=== PATIENT | male | born 1970 | race Caucasian/White ===

== ENCOUNTER 2017-02-13 18:27 | Inpatient (IN) | payer MEDICAID, OTHER ==
[~2017-02-13] VITALS: Ht 165.1 cm; Wt 78.0 kg
[2017-02-13] MEDS ORDERED: PANTOPRAZOLE 40 MG INJ IV STA (18:47)
[2017-02-13 19:36] LABS: ADD SCAN DIFF NO
[2017-02-13 19:52] LABS: ABNORMAL IP MESSAGE 1; HEMATOCRIT 34.3 % (42.0-52.0); HEMOGLOBIN 11.5 g/dl (14.0-18.0); MEAN CORPUSCULAR HEMOGLOBIN 29.6 pg (29.0-33.0); MEAN CORPUSCULAR HGB CONC 33.5 g/dl (32.0-37.0); MEAN CORPUSCULAR VOLUME 88.4 fl (82.0-101.0); MEAN PLATELET VOLUME 12.2 fl (7.4-10.4); PLATELET COUNT 73 10^3/UL (140-415); RED BLOOD COUNT 3.88 10^6/ul (4.70-6.10); RED CELL DISTRIBUTION WIDTH 14.6 % (11.5-14.5); WHITE BLOOD COUNT 5.5 10^3/ul (4.8-10.8)
[2017-02-13 19:59] LABS: ALBUMIN 4.8 g/dl (3.3-4.9); ALBUMIN/GLOBULIN RATIO 1.23; BILIRUBIN,INDIRECT 0.4 mg/dl (0-1.1); BILIRUBIN,TOTAL 0.4 mg/dl (0.2-1.3); CALCIUM 8.7 mg/dl (8.4-10.2); CREATININE 0.66 mg/dl (0.61-1.24); POTASSIUM 3.4 mmol/L (3.5-5.1); TOTAL PROTEIN 8.7 g/dl (6.1-8.1)
--- NOTE | 2017-02-13 20:17 | RADRPT ---
PROCEDURE: XR Chest AP portable CLINICAL INDICATION: Possible GI bleed TECHNIQUE: An AP portable radiograph of the chest was submitted. COMPARISON: None. FINDINGS: Support Hardware: None Cardiovascular: The heart is upper normal in size and the the peripheral pulmonary vasculature appea rs normal. The aorta appears tortuous. Lung Bull: The lung bull appear clear with no nodule, alveolar infiltrate, or interstitial promi nence evident. Pleural Spaces: No pneumothorax or pleural effusion is identified. Osseous Structures: The osseous structures appear intact. Soft Tissues: The soft tissues appear unremarkable. IMPRESSION: 1. The heart is upper normal in size and the pulmonary vasculature appears normal. 2. Aortic tortuosity. 3. Otherwise, unremarkable portable chest. Physician Kena Date Time Electronically viewed and signed by Physician Kena on 02/13/2017 20:17 /
[2017-02-13 20:37] LABS: BASOPHIL # 0.4 10^3/ul (0.0-0.1); EOSINOPHILS # 0.1 10^3/ul (0.0-0.5); LYMPHOCYTES # 1.2 10^3/ul (0.8-2.9); MONOCYTE # 0.4 10^3/ul (0.3-0.9); NEUTROPHIL # 3.3 10^3/ul (1.6-7.5); PLATELET ESTIMATE PLT APPEAR DECREASED
[2017-02-13 21:41] LABS: INR 0.98
[2017-02-13 21:42] LABS: PARTIAL THROMBOPLASTIN TIME 31.5 Sec (25.0-35.0)
[2017-02-13] MEDS ORDERED: ONDANSETRON 4 MG INJ IV PRN ×2 (22:00→23:30)
[2017-02-13] MEDS ORDERED: ACETAMINOPHEN 325 MG TAB PO PRN ×2 (22:00→23:30)
--- NOTE | 2017-02-13 22:15 | ERA ---
ER Documentation Chief Complaint Date/Time DATE: 02/13/17 TIME: 18:40 Chief Complaint throwing up blood, abd pain HPI 47-year-old male found on the sidewalk and brought to the ED via rescue ambulance for evaluation of hematemesis and alcohol intoxication. History is limited due to the patient's cognitive impairment is obtained primarily from EMS. Patient complained of epigastric abdominal pain and admitted to significant alcohol consumption. Denies head injury or headache. No chest pain , palpitations or shortness of breath. No fevers or chills ROS All systems reviewed and are negative except as per history of present illness. Medications Home Meds No Active Prescriptions or Reported Meds Allergies Allergies: Coded Allergies: No Known Allergy (Unverified , 02/13/17) PMhx/Soc Reviewed in chart. As per HPI. Medical and Surgical Hx: Unable to obtain History of Surgery: No Hx Neurological Disorder: No Hx Respiratory Disorders: No Hx Cardiac Disorders: No Hx Alcohol Use: Yes Hx Substance Use: No Smoking Status: Unknown if ever smoked FmHx Unknown Physical Exam Vitals Vital Signs Date Time Temp Pulse Resp B/P Pulse Ox O2 Delivery O2 Flow Rate FiO2 02/13/17 21:00 69 16 113/87 94 02/13/17 20:33 Nasal Cannula 2 02/13/17 19:56 66 16 125/85 94 Room Air 02/13/17 18:41 98.4 72 16 127/89 94 Physical Exam Const: Lethargic but arousable. Head: Atraumatic Eyes: Normal Conjunctiva. Pupils equal reactive to light. ENT: Normal External Ears, Nose and Mouth. Positive gag reflex. Negative joy sign. Neck: Full range of motion. Nontender. Resp: Breath sounds equal and clear to auscultation bilaterally Cardio: Regular rate and rhythm, no murmurs Abd: Soft, non tender, non distended. Normal bowel sounds Skin: No petechiae or rashes Back: No midline or flank tenderness Ext: No cyanosis, or edema Neur: GCS 2/3/5. Moves all extremities with 5/5 strength. Result Diagram: 02/13/17184602/13/171912 Results 24 hrs Laboratory Tests Test 02/13/17 18:47 02/13/17 19:13 02/13/17 20:23 02/13/17 20:30 White Blood Count 5.510^3/ul Red Blood Count 3.8810^6/ul Hemoglobin 11.5g/dl Hematocrit 34.3% Mean Corpuscular Volume 88.4fl Mean Corpuscular Hemoglobin 29.6pg Mean Corpuscular Hemoglobin Concent 33.5g/dl Red Cell Distribution Width 14.6% Platelet Count 7310^3/UL Mean Platelet Volume 12.2fl Neutrophils % 60.0% Band Neutrophils % 3.0% Lymphocytes % 21.0% Monocytes % 8.0% Eosinophils % 1.0% Basophils % 7.0% Neutrophils # 3.310^3/ul Lymphocytes # 1.210^3/ul Monocytes # 0.410^3/ul Eosinophils # 0.110^3/ul Basophils # 0.410^3/ul Platelet Estimate PLT APPEAR DECREASED Sodium Level 144mmol/L Potassium Level 3.4mmol/L Chloride Level 102mmol/L Carbon Dioxide Level 27mmol/L Anion Gap 18 Blood Urea Nitrogen 5mg/dl Creatinine 0.66mg/dl Glucose Level 98mg/dl Calcium Level 8.7mg/dl Total Bilirubin 0.4mg/dl Direct Bilirubin 0.00mg/dl Indirect Bilirubin 0.4mg/dl Aspartate Amino Transf (AST/SGOT) 237IU/L Alanine Aminotransferase (ALT/SGPT) 84IU/L Alkaline Phosphatase 188IU/L Total Protein 8.7g/dl Albumin 4.8g/dl Globulin 3.90g/dl Albumin/Globulin Ratio 1.23 Lipase 359U/L Bedside Glucose 96mg/dL Prothrombin Time 13.0Sec Prothrombin Time Ratio 1.0 INR International Normalized Ratio 0.98 Activated Partial Thromboplast Time 31.5Sec Ethyl Alcohol Level 405.0mg/dl Current Medications Medications (Trade) Dose Ordered Sig/Aubree Route PRN Reason Start Time Stop Time Status Last Admin Dose Admin Pantoprazole (Protonix Iv) 40 mg ONCE STAT IV 02/13/17 18:47 02/13/17 18:48 DC 02/13/17 19:16 Procedures/MDM DOCUMENTS REVIEWED: ED nurse, no prior records [employer]IN-year-old male found on the sidewalk and brought to the ED via rescue ambulance for evaluation of hematemesis and alcohol intoxication. Vital signs are stable. No evidence of active bleeding. Proton pump inhibitors given. Likely alcoholic gastritis versus peptic ulcer disease though esophageal varices considered. Alcohol level is greater than 400 mg/dL consistent with significant intoxication. No evidence of head injury or indication for neuroimaging although if mental status does not improve may be required. Labs reveal mild anemia with thrombocytopenia. Transaminitis. Mildly elevated lipase but not consistent with pancreatitis. Patient will be admitted to telemetry for further evaluation and management. CALLS/CONSULTS: Time 20:30, Dr. Esquivel, Recommends telemetry admission. PATIENT CARE TRANSITIONED: Time: 20:30, Dr. Esquivel. Departure Diagnosis: Primary Impression: Hematemesis Qualified Code: K92.0 - Hematemesis, presence of nausea not specified Additional Impressions: Upper GI bleed Alcohol intoxication Qualified Code: F10.129 - Alcohol intoxication, with unspecified complication Toxic encephalopathy Transaminitis Condition: Serious ROVERTO HILTON MD Feb 13, 2017 22:14 Qualified Code: K92.0 - Hematemesis, presence of nausea not specified Additional Impressions: Upper GI bleed Alcohol intoxication Qualified Code: F10.129 - Alcohol intoxication, with unspecified complication Toxic encephalopathy Transaminitis Condition: Stable ROVERTO HILTON MD Feb 13, 2017 22:14
--- NOTE | 2017-02-13 23:27 | HP ---
Date/Time of Note Date/Time of Note DATE: 02/13/17 TIME: 23:24 Assessment/Plan VTE Prophylaxis VTE Prophylaxis Intervention: SCD's Assessment/Plan Assessment/Plan 1. ETOH abuse and intoxication 2. Reported hematemesis 3. Hypokalemia 4. Chronic alcoholic liver disease with transaminitis and thrombocytopenia 5. Mild alcoholic pancreatitis 6. Toxic enecephalopathy 2/2 alcohol abuse PLAN: admit / IVF / banana bag / PRN ativan / librium replace lytes / monitotr HGB / NPO / trend liver enzymes and lipase levels Supportive care / fall and aspiration precautions Further interventions per clinical course HPI/ROS Admit Date/Time Admit Date/Time 02/14/17 Hx of Present Illness 47-year-old male who was found on the sidewalk and brought in by EMS found to be acutely intoxicated and altered. No other history is obtainable. Per emergency room physician report, patient has been having hematemesis. No evidence of hematemesis on my evaluation, however patient is barely arousable at this time. Will admit him allow him to sleep off his intoxication and see what he does when he arouses. ROS Subjective hx not possible: other (Unobtainable due to patient's clinical status) PMH/Family/Social Past Medical History Alcoholism Social History Alcohol Use: heavy Smoking Status: Unknown if ever smoked Exam/Review of Systems Vital Signs Vitals VS - Last 72 Hours, by Label Date Time Temp Pulse Resp B/P Pulse Ox O2 Delivery O2 Flow Rate FiO2 02/13/17 20:33 Nasal Cannula 2 02/13/17 19:56 66 16 125/85 94 Room Air 02/13/17 18:41 98.4 72 16 127/89 94 Vital Signs Date Time Temp Pulse Resp B/P Pulse Ox O2 Delivery O2 Flow Rate FiO2 02/13/17 20:33 Nasal Cannula 2 02/13/17 19:56 66 16 125/85 94 02/13/17 18:41 98.4 Exam Constitutional: other (sleeping soundly, witll arouse with aggressive stimulation and go back to sleep), No alert Head: atraumatic, normocephalic Eyes: PERRL Respiratory: clear to auscultation, diminished breath sounds Cardiovascular: regular rate and rhythm, No murmurs/extra sounds Gastrointestinal: bowel sounds, non-tender, soft Extremities: No edema Labs Result Diagram: 02/13/17 1847 02/13/17 1913 Procedures Procedures Laboratory Tests Test 02/13/17 18:47 02/13/17 19:13 02/13/17 20:23 02/13/17 20:30 White Blood Count 5.510^3/ul Red Blood Count 3.8810^6/ul Hemoglobin 11.5g/dl Hematocrit 34.3% Mean Corpuscular Volume 88.4fl Mean Corpuscular Hemoglobin 29.6pg Mean Corpuscular Hemoglobin Concent 33.5g/dl Red Cell Distribution Width 14.6% Platelet Count 7310^3/UL Mean Platelet Volume 12.2fl Neutrophils % 60.0% Band Neutrophils % 3.0% Lymphocytes % 21.0% Monocytes % 8.0% Eosinophils % 1.0% Basophils % 7.0% Neutrophils # 3.310^3/ul Lymphocytes # 1.210^3/ul Monocytes # 0.410^3/ul Eosinophils # 0.110^3/ul Basophils # 0.410^3/ul Platelet Estimate PLT APPEAR DECREASED Sodium Level 144mmol/L Potassium Level 3.4mmol/L Chloride Level 102mmol/L Carbon Dioxide Level 27mmol/L Anion Gap 18 Blood Urea Nitrogen 5mg/dl Creatinine 0.66mg/dl Glucose Level 98mg/dl Calcium Level 8.7mg/dl Total Bilirubin 0.4mg/dl Direct Bilirubin 0.00mg/dl Indirect Bilirubin 0.4mg/dl Aspartate Amino Transf (AST/SGOT) 237IU/L Alanine Aminotransferase (ALT/SGPT) 84IU/L Alkaline Phosphatase 188IU/L Total Protein 8.7g/dl Albumin 4.8g/dl Globulin 3.90g/dl Albumin/Globulin Ratio 1.23 Lipase 359U/L Bedside Glucose 96mg/dL Prothrombin Time 13.0Sec Prothrombin Time Ratio 1.0 INR International Normalized Ratio 0.98 Activated Partial Thromboplast Time 31.5Sec Ethyl Alcohol Level 405.0mg/dl Current Medications Medications (Trade) Dose Ordered Sig/Aubree Route PRN Reason Start Time Stop Time Status Last Admin Dose Admin Pantoprazole (Protonix Iv) 40 mg ONCE STAT IV 02/13/17 18:47 02/13/17 18:48 DC 02/13/17 19:16 40 MG Ondansetron HCl (Zofran Inj) 4 mg ER BRIDGE PRN IV NAUSEA AND/OR VOMITING 02/13/17 22:00 02/14/17 21:59 Acetaminophen (Tylenol Tab) 650 mg ER BRIDGE PRN PO MILD PAIN/FEVER 02/13/17 22:00 02/14/17 21:59 PROCEDURE: XR Chest AP portable CLINICAL INDICATION: Possible GI bleed TECHNIQUE: An AP portable radiograph of the chest was submitted. COMPARISON: None. FINDINGS: Support Hardware: None Cardiovascular: The heart is upper normal in size and the the peripheral pulmonary vasculature appears normal. The aorta appears tortuous. Lung Bull: The lung bull appear clear with no nodule, alveolar infiltrate, or interstitial prominence evident. Pleural Spaces: No pneumothorax or pleural effusion is identified. Osseous Structures: The osseous structures appear intact. Soft Tissues: The soft tissues appear unremarkable. IMPRESSION: 1. The heart is upper normal in size and the pulmonary vasculature appears normal. 2. Aortic tortuosity. 3. Otherwise, unremarkable portable chest. Physician Kena Date Time Electronically viewed and signed by Jermaine Smith Physician on 02/13/2017 20:17 RH/ CC: ROVERTO HILTON MD, BOLATITO M. Feb 13, 2017 23:27
[2017-02-13] MEDS: DEXTROSE 5%-0.45% NACL 1,000 ML IV SCH (23:30)
[2017-02-13] MEDS ORDERED: LORAZEPAM 2 MG INJ IV PRN (23:30)
[2017-02-14] VITALS (12 sets, daily range): BP systolic 142–170; BP diastolic 89–100; PULSE 74–80; RESP 17–22; Ht 165.1 cm; Wt 78.0 kg
[2017-02-14] MEDS ORDERED: POTASSIUM CHLORIDE 30 MEQ in SOD CHLORIDE 0.9% 150 ML IVPB ONE ×2
[2017-02-14] MEDS: DEXTROSE 5%-0.45% NACL 1,000 ML IV SCH ×5 (02:51→23:30)
[2017-02-14] MEDS: PANTOPRAZOLE 40 MG INJ IV SCH (05:19)
[2017-02-14] MEDS: CHLORDIAZEPOXIDE 25 MG CAP PO SCH ×3 (08:59→21:19)
[2017-02-14] MEDS: MULTIVITAMINS 10 ML, THIAMINE 100 MG, FOLIC ACID 1 MG in SOD CHLORIDE 0.9% 1,000 ML IVPB SCH (12:56)
--- NOTE | 2017-02-14 15:32 | CONS ---
Date/Time of Note Date/Time of Note DATE: 02/14/17 TIME: 15:14 Assessment/Plan Assessment/Plan Additional Assessment/Plan Assessment * Transaminitis Alcoholic liver disease chronic alcohol abuse * Alcoholic pancreatitis Plan * trend liver enzymes * monitor hemoglobin and hematocrit daily * stool for occult blood * Liver ultrasound * continue present management * Case discussed with Dr Snyder and Benjamín * Further orders depend on clinical course Consultation Date/Type/Reason Admit Date/Time 02/14/17 Date of Consultation: Feb 14, 2017 Type of Consultation: Gastroenterology Reason for Consultation hematemesis/alcohol intoxication Referring Provider: TIANA LEMUS Hx of Present Illness 47 year old male known alcoholic for the past 7 years,unknown past medical history was brought to emergency room by EMS allegedly found on sidewalk acutely intoxicated and altered.Emergency workup revealed ethyl alcohol 405,AST 237,alt 84,alkaline [id number],Lipase 359 PT 13.0 INR 0.98,APTT 31.5,WBC 5.5 Hematocrit 11.5 Hematocrit 34.3 Subsequent examination, revealed awake alert patient denies any hematemesis,nor hematochezia but admitted drinking excessively from February 09 to February 13.Patient denies abdominal pain. Past Medical History Medical History: no pertinent history Past Surgical History Past Surgical Hx: no surgical history Social History Alcohol Use: heavy Smoking Status: Never smoker Exam/Review of Systems Vital Signs Vitals Vital Signs Date Time Temp Pulse Resp B/P Pulse Ox O2 Delivery O2 Flow Rate FiO2 02/14/17 12:30 98.0 68 18 156/89 98 02/14/17 02:10 Room Air 02/14/17 01:15 2.0 Intake and Output 02/13/17 02/13/17 02/14/17 15:00 23:00 07:00 Output Total 900 ml Balance -900 ml Exam Constitutional: alert, oriented, well developed Psych: nl mood/affect, no complaints Head: atraumatic, normocephalic Eyes: EOMI, PERRL, nl conjunctiva, nl lids, nl sclera ENMT: nl nasal mucosa & septum Neck: non-tender, supple Respiratory: clear to auscultation, normal air movement Cardiovascular: nl pulses, regular rate and rhythm Gastrointestinal: nl liver, spleen, non-tender, soft Musculoskeletal: nl extremities to inspection, nl gait and stance Extremities: normal pulses Neurological: [employer] II-XII intact, nl mental status, nl speech, nl strength Skin: nl turgor, No rash or lesions Lymph: nl lymph nodes Results Result Diagram: 02/13/177 02/13/171912 Results 24 hrs Laboratory Tests Test 02/13/17 18:47 02/13/17 19:13 02/13/17 20:23 02/13/17 20:30 White Blood Count 5.5 Red Blood Count 3.88 L Hemoglobin 11.5 L Hematocrit 34.3 L Mean Corpuscular Volume 88.4 Mean Corpuscular Hemoglobin 29.6 Mean Corpuscular Hemoglobin Concent 33.5 Red Cell Distribution Width 14.6 H Platelet Count 73 L Mean Platelet Volume 12.2 H Neutrophils % 60.0 Band Neutrophils % 3.0 Lymphocytes % 21.0 Monocytes % 8.0 Eosinophils % 1.0 Basophils % 7.0 H Neutrophils # 3.3 Lymphocytes # 1.2 Monocytes # 0.4 Eosinophils # 0.1 Basophils # 0.4 H Platelet Estimate PLT APPEAR DECREASED Sodium Level 144 Potassium Level 3.4 L Chloride Level 102 Carbon Dioxide Level 27 Anion Gap 18 H Blood Urea Nitrogen 5 L Creatinine 0.66 Glucose Level 98 Calcium Level 8.7 Total Bilirubin 0.4 Direct Bilirubin 0.00 Indirect Bilirubin 0.4 Aspartate Amino Transf (AST/SGOT) 237 H Alanine Aminotransferase (ALT/SGPT) 84 H Alkaline Phosphatase 188 H Total Protein 8.7 H Albumin 4.8 Globulin 3.90 H Albumin/Globulin Ratio 1.23 Lipase 359 H Bedside Glucose 96 Prothrombin Time 13.0 Prothrombin Time Ratio 1.0 INR International Normalized Ratio 0.98 Activated Partial Thromboplast Time 31.5 Ethyl Alcohol Level 405.0 Medications Medications Current Medications Multivitamins 10 ml/Thiamine HCl 100 mg/Folic Acid 1 mg/Sodium Chloride 1,011.2 ml @ 125 mls/ hr DAILY@09 IVPB Last administered on 02/14/17 12:56; Admin Dose 125 MLS/HR; Start 02/14/17 at 09:00 Dextrose/Sodium Chloride (D5-1/2ns) 1,000 ml @ 125 mls/hr Q8H IV Last administered on 02/14/17 11:38; Admin Dose 125 MLS/HR; Start 02/13/17 at 23:30 Chlordiazepoxide (Librium) 25 mg TID PO Last administered on 02/14/17 12:56; Admin Dose 25 MG; Start 02/14/17 at 09:00; Stop 02/17/17 at 08:59 Lorazepam (Ativan) 1 mg Q6H PRN IV withdrawal / agitation; Start 02/13/17 at 23: 30 Pantoprazole (Protonix Iv) 40 mg DAILY@06 IV Last administered on 02/14/17 05: 19; Admin Dose 40 MG; Start 02/14/17 at 06:00 Ondansetron HCl (Zofran Inj) 4 mg Q6H PRN IV NAUSEA AND/OR VOMITING; Start 02/13 at 23:30 Acetaminophen (Tylenol Tab) 650 mg Q6H PRN PO PAIN AND OR ELEVATED TEMP; Start 02/13/17 at 23:30 ANGELES SALAZAR NP Feb 14, 2017 15:25
--- NOTE | 2017-02-14 16:08 | RADRPT ---
PROCEDURE: US Abdomen and Retroperitoneum. CLINICAL INDICATION: Elevated liver enzymes. TECHNIQUE: Multiple real-time longitudinal and transverse images were acquired of the patient's ab domen and retroperitoneum utilizing a curved array transducer. COMPARISON: No prior studies are available for comparison. FINDINGS: The liver is normal in size and normal in echogenicity. The liver has a normal smooth surface. Ther e is no focal hepatic lesion. Color Doppler and pulsed Doppler sonography demonstrate normal antegra de flow in the portal vein. The gallbladder is normal with no stones or wall thickening. The bile ducts are normal with the common bile duct measuring 4.0 mm in diameter. The spleen is normal in size. There is no focal splenic lesion. The pancreas is not visualized due to overlying bowel gas. There is no free fluid. The right kidney measures 10.0 cm and the left kidney measures 10.9 cm. There is no renal mass. There is no hydronephrosis or calculus. The abdominal aorta is not dilated. The inferior vena cava is unremarkable. IMPRESSION: 1. Pancreas not visualized. 2. Otherwise normal ultrasound of the abdomen and retroperitoneum. RPTAT: QQ .Terry Joaquin MD, MD Date Time Electronically viewed and signed by .Terry Joaquin MD, on 02/14/2017 16:08 .R/
--- NOTE | 2017-02-14 16:34 | PN ---
Date/Time of Note Date/Time of Note DATE: 02/14/17 TIME: 16:30 Assessment/Plan VTE Prophylaxis VTE Prophylaxis Intervention: SCD's Lines/Catheters IV Catheter Type (from Nrs): Peripheral IV Urinary Cath still in place: Yes Reason Cath still needed: urinary retention Assessment/Plan Chief Complaint/Hosp Course Assessment/Plan: 47-year-old male with: 1. ETOH abuse and intoxication -continue IVF / banana bag / PRN ativan / librium 2. Reported hematemesis -follow-up GI Rec's including liver ultrasound, occult test 3. Hypokalemia -replete 4. Chronic alcoholic liver disease with transaminitis and thrombocytopenia - trend liver enzymes and lipase levels 5. Mild alcoholic pancreatitis -trend lipase, continue n.p.o. 6. Toxic enecephalopathy 2/2 alcohol abuse -monitor mental status, and signs for withdrawal Problems: Subjective 24 Hr Interval Summary Free Text/Dictation Patient on banana bag, no acute events overnight. Exam/Review of Systems Vital Signs Vitals Vital Signs Date Time Temp Pulse Resp B/P Pulse Ox O2 Delivery O2 Flow Rate FiO2 02/14/17 16:28 79 02/14/17 12:30 98.0 18 156/89 98 02/14/17 02:10 Room Air 02/14/17 01:15 2.0 Intake and Output 02/13/17 02/13/17 02/14/17 15:00 23:00 07:00 Output Total 900 ml Balance -900 ml Exam Constitutional: other (sitting in chair, no acute distress), No alert Head: atraumatic, normocephalic Eyes: PERRL Respiratory: clear to auscultation, diminished breath sounds Cardiovascular: regular rate and rhythm, No murmurs/extra sounds Gastrointestinal: bowel sounds, non-tender, soft Extremities: No edema Results Result Diagram: 02/13/17 1847 02/13/17 191 Results 24 hrs Laboratory Tests Test 02/13/17 18:47 02/13/17 19:13 02/13/17 20:23 02/13/17 20:30 White Blood Count 5.5 Red Blood Count 3.88 L Hemoglobin 11.5 L Hematocrit 34.3 L Mean Corpuscular Volume 88.4 Mean Corpuscular Hemoglobin 29.6 Mean Corpuscular Hemoglobin Concent 33.5 Red Cell Distribution Width 14.6 H Platelet Count 73 L Mean Platelet Volume 12.2 H Neutrophils % 60.0 Band Neutrophils % 3.0 Lymphocytes % 21.0 Monocytes % 8.0 Eosinophils % 1.0 Basophils % 7.0 H Neutrophils # 3.3 Lymphocytes # 1.2 Monocytes # 0.4 Eosinophils # 0.1 Basophils # 0.4 H Platelet Estimate PLT APPEAR DECREASED Sodium Level 144 Potassium Level 3.4 L Chloride Level 102 Carbon Dioxide Level 27 Anion Gap 18 H Blood Urea Nitrogen 5 L Creatinine 0.66 Glucose Level 98 Calcium Level 8.7 Total Bilirubin 0.4 Direct Bilirubin 0.00 Indirect Bilirubin 0.4 Aspartate Amino Transf (AST/SGOT) 237 H Alanine Aminotransferase (ALT/SGPT) 84 H Alkaline Phosphatase 188 H Total Protein 8.7 H Albumin 4.8 Globulin 3.90 H Albumin/Globulin Ratio 1.23 Lipase 359 H Bedside Glucose 96 Prothrombin Time 13.0 Prothrombin Time Ratio 1.0 INR International Normalized Ratio 0.98 Activated Partial Thromboplast Time 31.5 Ethyl Alcohol Level 405.0 Medications Medications Current Medications Multivitamins 10 ml/Thiamine HCl 100 mg/Folic Acid 1 mg/Sodium Chloride 1,011.2 ml @ 125 mls/ hr DAILY@09 IVPB Last administered on 02/14/17 12:56; Admin Dose 125 MLS/HR; Start 02/14/17 at 09:00 Dextrose/Sodium Chloride (D5-1/2ns) 1,000 ml @ 125 mls/hr Q8H IV Last administered on 02/14/17 11:38; Admin Dose 125 MLS/HR; Start 02/13/17 at 23:30 Chlordiazepoxide (Librium) 25 mg TID PO Last administered on 02/14/17 12:56; Admin Dose 25 MG; Start 02/14/17 at 09:00; Stop 02/17/17 at 08:59 Lorazepam (Ativan) 1 mg Q6H PRN IV withdrawal / agitation; Start 02/13/17 at 23: 30 Pantoprazole (Protonix Iv) 40 mg DAILY@06 IV Last administered on 02/14/17 05: 19; Admin Dose 40 MG; Start 02/14/17 at 06:00 Ondansetron HCl (Zofran Inj) 4 mg Q6H PRN IV NAUSEA AND/OR VOMITING; Start 7/5 /17 at 23:30 Acetaminophen (Tylenol Tab) 650 mg Q6H PRN PO PAIN AND OR ELEVATED TEMP; Start 02/13/17 at 23:30 TONG MOREIRA Feb 14, 2017 16:33
[2017-02-14] MEDS: HEPARIN 5,000 UNIT/0.5 ML VIAL SC SCH (21:20)
[2017-02-15] VITALS (10 sets, daily range): BP systolic 135–159; BP diastolic 85–99; PULSE 70–85; RESP 19–20
[2017-02-15] MEDS: PANTOPRAZOLE 40 MG INJ IV SCH (05:52)
[2017-02-15 07:04] LABS: ADD SCAN DIFF NO
[2017-02-15 07:15] LABS: ABNORMAL IP MESSAGE 1; BASOPHIL # 0.1 10^3/ul (0.0-0.1); EOSINOPHILS % 0.3 % (0.0-7.0); HEMATOCRIT 36.5 % (42.0-52.0); HEMOGLOBIN 12.4 g/dl (14.0-18.0); LYMPHOCYTES # 0.5 10^3/ul (0.8-2.9); LYMPHOCYTES % 7.2 % (15.0-51.0); MEAN CORPUSCULAR HEMOGLOBIN 30.1 pg (29.0-33.0); MEAN CORPUSCULAR VOLUME 88.6 fl (82.0-101.0); MEAN PLATELET VOLUME 13.2 fl (7.4-10.4); MONOCYTE # 0.7 10^3/ul (0.3-0.9); MONOCYTES % 10.6 % (0.0-11.0); NEUTROPHIL # 5.5 10^3/ul (1.6-7.5); NEUTROPHILS % 80.6 % (39.0-77.0); RED BLOOD COUNT 4.12 10^6/ul (4.70-6.10); RED CELL DISTRIBUTION WIDTH 14.4 % (11.5-14.5); WHITE BLOOD COUNT 6.8 10^3/ul (4.8-10.8)
[2017-02-15 07:28] LABS: PLATELET COUNT 51 10^3/UL (140-415)
[2017-02-15 08:37] LABS: ALBUMIN 4.5 g/dl (3.3-4.9); ALBUMIN/GLOBULIN RATIO 1.21; CALCIUM 8.6 mg/dl (8.4-10.2); CREATININE 0.54 mg/dl (0.61-1.24); POTASSIUM 3.3 mmol/L (3.5-5.1); TOTAL PROTEIN 8.2 g/dl (6.1-8.1)
[2017-02-15 08:38] LABS: ALBUMIN 4.6 g/dl (3.3-4.9); TOTAL PROTEIN 8.2 g/dl (6.1-8.1)
[2017-02-15] MEDS: DEXTROSE 5%-0.45% NACL 1,000 ML IV SCH (08:50)
[2017-02-15] MEDS: CHLORDIAZEPOXIDE 25 MG CAP PO SCH ×3 (08:50→21:01)
[2017-02-15] MEDS: MULTIVITAMINS 10 ML, THIAMINE 100 MG, FOLIC ACID 1 MG in SOD CHLORIDE 0.9% 1,000 ML IVPB SCH (08:56)
[2017-02-15] MEDS: HEPARIN 5,000 UNIT/0.5 ML VIAL SC SCH (08:56)
--- NOTE | 2017-02-15 10:05 | PN ---
Date/Time of Note Date/Time of Note DATE: 02/15/17 TIME: 09:59 Assessment/Plan VTE Prophylaxis VTE Prophylaxis Intervention: ambulation Lines/Catheters [facility] Saline Lock Urinary Cath still in place: No Assessment/Plan Assessment/Plan Assessment * Transaminitis Alcoholic liver disease chronic alcohol abuse * Alcoholic pancreatitis Plan * continue present management * progress diet * case discussed with Dr Snyder and Benjamín * further orders will depend on clinical course Subjective 24 Hr Interval Summary Free Text/Dictation * Course reviewed * No untoward events * No episodes of bleeding * Ultrasound Pancreas not visualized. . Otherwise normal ultrasound of the abdomen and retroperitoneum. Exam/Review of Systems Vital Signs Vitals Vital Signs Date Time Temp Pulse Resp B/P Pulse Ox O2 Delivery O2 Flow Rate FiO2 02/15/17 09:49 75 02/15/17 07:43 98.8 19 147/90 96 02/14/17 02:10 Room Air 02/14/17 01:15 2.0 Intake and Output 02/14/17 02/14/17 02/15/17 15:00 23:00 07:00 Intake Total 775 ml 1200 ml Output Total 800 ml Balance 775 ml 400 ml Exam Constitutional: alert, oriented Psych: nl mood/affect, no complaints Head: atraumatic, normocephalic Eyes: nl sclera ENMT: mucosa pink and moist Respiratory: clear to auscultation, normal air movement Cardiovascular: nl pulses, regular rate and rhythm Gastrointestinal: nl liver, spleen, non-tender, soft Musculoskeletal: nl extremities to inspection, nl gait and stance Extremities: normal pulses Neurological: nl speech, nl strength Skin: nl turgor, No rash or lesions Lymph: nl lymph nodes Results Result Diagram: 02/15/1725 02/15/17624 Results 24 hrs Laboratory Tests Test 02/15/17 06:25 White Blood Count 6.8 # Red Blood Count 4.12 L Hemoglobin 12.4 L Hematocrit 36.5 L Mean Corpuscular Volume 88.6 Mean Corpuscular Hemoglobin 30.1 Mean Corpuscular Hemoglobin Concent 34.0 Red Cell Distribution Width 14.4 Platelet Count 51 #L Mean Platelet Volume 13.2 H Neutrophils % 80.6 H Lymphocytes % 7.2 L Monocytes % 10.6 Eosinophils % 0.3 Basophils % 1.0 Nucleated Red Blood Cells % 0.0 Neutrophils # 5.5 Lymphocytes # 0.5 L Monocytes # 0.7 Eosinophils # 0.0 Basophils # 0.1 Nucleated Red Blood Cells # 0.0 Sodium Level 137 Potassium Level 3.3 L Chloride Level 98 Carbon Dioxide Level 28 Anion Gap 14 Blood Urea Nitrogen 7 Creatinine 0.54 L Glucose Level 110 Lactic Acid Level 1.2 Calcium Level 8.6 Total Bilirubin 1.0 Direct Bilirubin 0.00 Indirect Bilirubin 1.0 Aspartate Amino Transf (AST/SGOT) 155 H Alanine Aminotransferase (ALT/SGPT) 75 H Alkaline Phosphatase 209 H Total Protein 8.2 H Albumin 4.6 Globulin 3.70 H Albumin/Globulin Ratio 1.21 Amylase Level 73 Lipase 200 Medications Medications Current Medications Multivitamins 10 ml/Thiamine HCl 100 mg/Folic Acid 1 mg/Sodium Chloride 1,011.2 ml @ 125 mls/ hr DAILY@09 IVPB Last administered on 02/15/17 08:56; Admin Dose 125 MLS/HR; Start 02/14/17 at 09:00 Dextrose/Sodium Chloride (D5-1/2ns) 1,000 ml @ 125 mls/hr Q8H IV Last administered on 02/14/17 23:30; Admin Dose 125 MLS/HR; Start 02/13/17 at 23:30 Chlordiazepoxide (Librium) 25 mg TID PO Last administered on 02/15/17 08:50; Admin Dose 25 MG; Start 02/14/17 at 09:00; Stop 02/17/17 at 08:59 Lorazepam (Ativan) 1 mg Q6H PRN IV withdrawal / agitation; Start 02/13/17 at 23: 30 Pantoprazole (Protonix Iv) 40 mg DAILY@06 IV Last administered on 02/15/17 05: 52; Admin Dose 40 MG; Start 02/14/17 at 06:00 Ondansetron HCl (Zofran Inj) 4 mg Q6H PRN IV NAUSEA AND/OR VOMITING; Start 02/13 at 23:30 Acetaminophen (Tylenol Tab) 650 mg Q6H PRN PO PAIN AND OR ELEVATED TEMP; Start 02/13/17 at 23:30 Heparin Sodium (Porcine) (Heparin (5000 Units/0.5 ml)) 5,000 unit BID SC Last administered on 02/15/17 08:56; Admin Dose 5,000 UNIT; Start 02/14/17 at 21:00 ANGELES SALAZAR NP Feb 15, 2017 10:05
--- NOTE | 2017-02-15 15:04 | PN ---
Date/Time of Note Date/Time of Note DATE: 02/15/17 TIME: 15:02 Assessment/Plan VTE Prophylaxis VTE Prophylaxis Intervention: SCD's Lines/Catheters IV Catheter Type (from [facility]): Peripheral IV Urinary Cath still in place: No Assessment/Plan Chief Complaint/Hosp Course Assessment/Plan: 47-year-old male with: 1. ETOH abuse and intoxication -slowly improving -continue IVF / banana bag / PRN ativan / librium -Monitor for withdrawal 2. Reported hematemesis -follow-up GI Rec's including liver ultrasound, occult test 3. Hypokalemia -replete again today 4. Chronic alcoholic liver disease with transaminitis and thrombocytopenia - trend liver enzymes and lipase levels 5. Mild alcoholic pancreatitis -lipase normal now, will start clear liquid diet and advance as tolerated 6. 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 continues to detoxify Problems: Subjective 24 Hr Interval Summary Free Text/Dictation Patient tolerating diet, less withdrawal symptoms, no acute events overnight. Exam/Review of Systems Vital Signs Vitals Vital Signs Date Time Temp Pulse Resp B/P Pulse Ox O2 Delivery O2 Flow Rate FiO2 02/15/17 12:21 85 02/15/17 11:38 97.8 19 145/85 96 02/14/17 02:10 Room Air 02/14/17 01:15 2.0 Intake and Output 02/14/17 02/14/17 02/15/17 15:00 23:00 07:00 Intake Total 775 ml 1200 ml Output Total 800 ml Balance 775 ml 400 ml Exam Constitutional: other (sitting in chair, no acute distress), No alert Head: atraumatic, normocephalic Eyes: PERRL Respiratory: clear to auscultation, diminished breath sounds Cardiovascular: regular rate and rhythm, No murmurs/extra sounds Gastrointestinal: bowel sounds, non-tender, soft Extremities: No edema Results Result Diagram: 02/15/1725 02/15/17 0625 Results 24 hrs Laboratory Tests Test 02/15/17 06:25 White Blood Count 6.8 # Red Blood Count 4.12 L Hemoglobin 12.4 L Hematocrit 36.5 L Mean Corpuscular Volume 88.6 Mean Corpuscular Hemoglobin 30.1 Mean Corpuscular Hemoglobin Concent 34.0 Red Cell Distribution Width 14.4 Platelet Count 51 #L Mean Platelet Volume 13.2 H Neutrophils % 80.6 H Lymphocytes % 7.2 L Monocytes % 10.6 Eosinophils % 0.3 Basophils % 1.0 Nucleated Red Blood Cells % 0.0 Neutrophils # 5.5 Lymphocytes # 0.5 L Monocytes # 0.7 Eosinophils # 0.0 Basophils # 0.1 Nucleated Red Blood Cells # 0.0 Sodium Level 137 Potassium Level 3.3 L Chloride Level 98 Carbon Dioxide Level 28 Anion Gap 14 Blood Urea Nitrogen 7 Creatinine 0.54 L Glucose Level 110 Lactic Acid Level 1.2 Calcium Level 8.6 Total Bilirubin 1.0 Direct Bilirubin 0.00 Indirect Bilirubin 1.0 Aspartate Amino Transf (AST/SGOT) 155 H Alanine Aminotransferase (ALT/SGPT) 75 H Alkaline Phosphatase 209 H Total Protein 8.2 H Albumin 4.6 Globulin 3.70 H Albumin/Globulin Ratio 1.21 Amylase Level 73 Lipase 200 Medications Medications Current Medications Multivitamins/ Thiamine HCl/ Folic Acid/Sodium Chloride (Mvi Adult/ Vitamin B1/ Folic Acid/NS) 1,011.2 ml @ 125 mls/ hr DAILY@09 IVPB Last administered on 02/15 08:56; Admin Dose 125 MLS/HR; Start 02/14/17 at 09:00 Chlordiazepoxide (Librium) 25 mg TID PO Last administered on 02/15/17 13:33; Admin Dose 25 MG; Start 02/14/17 at 09:00; Stop 02/17/17 at 08:59 Lorazepam (Ativan) 1 mg Q6H PRN IV withdrawal / agitation; Start 02/13/17 at 23: 30 Pantoprazole (Protonix Iv) 40 mg DAILY@06 IV Last administered on 02/15/17 05: 52; Admin Dose 40 MG; Start 02/14/17 at 06:00 Ondansetron HCl (Zofran Inj) 4 mg Q6H PRN IV NAUSEA AND/OR VOMITING; Start 02/13 at 23:30 Acetaminophen (Tylenol Tab) 650 mg Q6H PRN PO PAIN AND OR ELEVATED TEMP; Start 02/13/17 at 23:30 TONG MOREIRA Feb 15, 2017 15:04
[2017-02-16] MEDS: PANTOPRAZOLE 40 MG INJ IV SCH (06:41)
[2017-02-16 07:45] VITALS: BP 144/103; RESP 19
[2017-02-16] MEDS: MULTIVITAMINS 10 ML, THIAMINE 100 MG, FOLIC ACID 1 MG in SOD CHLORIDE 0.9% 1,000 ML IVPB SCH (08:56)
[2017-02-16] MEDS: CHLORDIAZEPOXIDE 25 MG CAP PO SCH ×3 (08:56→21:04)
[2017-02-16 11:38] LABS: ADD SCAN DIFF NO
[2017-02-16 11:44] VITALS: BP 140/95; RESP 19
[2017-02-16 11:55] LABS: HEMATOCRIT 38.1 % (42.0-52.0); MEAN CORPUSCULAR HEMOGLOBIN 30.3 pg (29.0-33.0); MEAN CORPUSCULAR HGB CONC 34.1 g/dl (32.0-37.0); MEAN CORPUSCULAR VOLUME 88.8 fl (82.0-101.0); PLATELET COUNT 65 10^3/UL (140-440); RED BLOOD COUNT 6.86 10^6/ul (4.70-6.10); RED CELL DISTRIBUTION WIDTH 14.5 % (11.5-14.5); WHITE BLOOD COUNT 8.3 10^3/ul (4.8-10.8)
[2017-02-16 11:56] LABS: BASOPHILS % 0.8 % (0.0-2.0); EOSINOPHILS % 2.9 % (0.0-7.0); LYMPHOCYTES # 0.5 10^3/ul (0.8-2.9); LYMPHOCYTES % 6.1 % (15.0-51.0); MEAN PLATELET VOLUME 13.1 fl (7.4-10.4); MONOCYTES % 7.7 % (0.0-11.0); NEUTROPHIL # 6.9 10^3/ul (1.6-7.5); NEUTROPHILS % 82.3 % (39.0-77.0)
[2017-02-16 11:57] LABS: BASOPHIL # 0.1 10^3/ul (0.0-0.1); EOSINOPHILS # 0.2 10^3/ul (0.0-0.5); MONOCYTE # 0.6 10^3/ul (0.3-0.9)
[2017-02-16 11:59] LABS: ALBUMIN 4.6 g/dl (3.3-4.9)
[2017-02-16 12:01] LABS: ALBUMIN 4.7 g/dl (3.3-4.9); ALBUMIN/GLOBULIN RATIO 1.27; BILIRUBIN,INDIRECT 0.9 mg/dl (0-1.1); BILIRUBIN,TOTAL 0.9 mg/dl (0.2-1.3); CALCIUM 9.4 mg/dl (8.4-10.2); CREATININE 0.69 mg/dl (0.61-1.24); POTASSIUM 3.6 mmol/L (3.5-5.1); TOTAL PROTEIN 8.4 g/dl (6.1-8.1)
--- NOTE | 2017-02-16 14:14 | PN ---
Date/Time of Note Date/Time of Note DATE: 02/16/17 TIME: 14:08 Assessment/Plan VTE Prophylaxis VTE Prophylaxis Intervention: ambulation Lines/Catheters [facility] Peripheral IV Urinary Cath still in place: No Assessment/Plan Assessment/Plan Assessment * Hematemesis R/O Varices vs peptic ulcer disease vs others * Transaminitis Alcoholic liver disease chronic alcohol abuse * Alcoholic pancreatitis Plan * continue present management * progress diet * EGD on Saturday ,risks and benefit explained to patient and agreed with planned procedure * case discussed with Dr Snyder * trend liver enzymes * further orders will depend on clinical course Subjective 24 Hr Interval Summary Free Text/Dictation * Course reviewed with RN * Patient seen and examined * Transaminases elevated * denies any hematemesis * denies abdominal pain Exam/Review of Systems Vital Signs Vitals Vital Signs Date Time Temp Pulse Resp B/P Pulse Ox O2 Delivery O2 Flow Rate FiO2 02/16/17 11:44 98.4 79 19 140/95 96 02/14/17 02:10 Room Air 02/14/17 01:15 2.0 Intake and Output 02/15/17 02/15/17 02/16/17 15:00 23:00 07:00 Intake Total 500 ml 300 ml Balance 500 ml 300 ml Exam Constitutional: alert, oriented Head: normocephalic Eyes: nl conjunctiva Neck: non-tender, supple Respiratory: clear to auscultation, normal air movement Cardiovascular: nl pulses, regular rate and rhythm Gastrointestinal: non-tender, soft Musculoskeletal: nl extremities to inspection, No nl gait and stance Extremities: normal pulses Neurological: nl speech, nl strength Skin: nl turgor, No rash or lesions Lymph: nl lymph nodes Results Result Diagram: 02/16/17 1127 02/16/17 1127 Results 24 hrs Laboratory Tests Test 02/16/17 11:27 White Blood Count 8.3 # Red Blood Count 6.86 #H Hemoglobin 13.0 L Hematocrit 38.1 L Mean Corpuscular Volume 88.8 Mean Corpuscular Hemoglobin 30.3 Mean Corpuscular Hemoglobin Concent 34.1 Red Cell Distribution Width 14.5 Platelet Count 65 L Mean Platelet Volume 13.1 H Neutrophils % 82.3 H Lymphocytes % 6.1 L Monocytes % 7.7 Eosinophils % 2.9 Basophils % 0.8 Nucleated Red Blood Cells % 0.0 Neutrophils # 6.9 Lymphocytes # 0.5 L Monocytes # 0.6 Eosinophils # 0.2 Basophils # 0.1 Nucleated Red Blood Cells # 0.0 Sodium Level 137 Potassium Level 3.6 Chloride Level 101 Carbon Dioxide Level 28 Anion Gap 12 Blood Urea Nitrogen 10 Creatinine 0.69 Glucose Level 116 Calcium Level 9.4 Total Bilirubin 0.9 Direct Bilirubin 0.00 Indirect Bilirubin 0.9 Aspartate Amino Transf (AST/SGOT) 238 H Alanine Aminotransferase (ALT/SGPT) 90 H Alkaline Phosphatase 207 H Total Protein 8.4 H Albumin 4.7 Globulin 3.70 H Albumin/Globulin Ratio 1.27 Amylase Level 95 Lipase 306 H Medications Medications Current Medications Multivitamins/ Thiamine HCl/ Folic Acid/Sodium Chloride (Mvi Adult/ Vitamin B1/ Folic Acid/NS) 1,011.2 ml @ 125 mls/ hr DAILY@09 IVPB Last administered on 02/16 08:56; Admin Dose 125 MLS/HR; Start 02/14/17 at 09:00 Chlordiazepoxide (Librium) 25 mg TID PO Last administered on 02/16/17 13:04; Admin Dose 25 MG; Start 02/14/17 at 09:00; Stop 02/17/17 at 08:59 Lorazepam (Ativan) 1 mg Q6H PRN IV withdrawal / agitation; Start 02/13/17 at 23: 30 Pantoprazole (Protonix Iv) 40 mg DAILY@06 IV Last administered on 02/16/17 06: 41; Admin Dose 40 MG; Start 02/14/17 at 06:00 Ondansetron HCl (Zofran Inj) 4 mg Q6H PRN IV NAUSEA AND/OR VOMITING; Start 02/13 at 23:30 Acetaminophen (Tylenol Tab) 650 mg Q6H PRN PO PAIN AND OR ELEVATED TEMP; Start 02/13/17 at 23:30 ANGELES SALAZAR NP Feb 16, 2017 14:14
--- NOTE | 2017-02-16 15:05 | PN ---
Date/Time of Note Date/Time of Note DATE: 02/16/17 TIME: 15:03 Assessment/Plan VTE Prophylaxis VTE Prophylaxis Intervention: SCD's Lines/Catheters [facility] (from [facility]): Peripheral IV Urinary Cath still in place: No Assessment/Plan Chief Complaint/Hosp Course Assessment/Plan: 47-year-old male with: 1. ETOH abuse and intoxication -slowly improving -continue IVF / banana bag / PRN ativan / librium -Monitor for withdrawal -Per GI recommendations, for EGD and colonoscopy on Saturday. 2. Reported hematemesis -follow-up GI Rec's including liver ultrasound, occult test 3. Hypokalemia -resolved, monitor 4. Chronic alcoholic liver disease with transaminitis and thrombocytopenia - trend liver enzymes and lipase levels (still slightly elevated) 5. Mild alcoholic pancreatitis -continue clear liquid diet and advance as tolerated, monitor lipase 6. 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 Seen by GI team earlier today. Exam/Review of Systems Vital Signs Vitals Vital Signs Date Time Temp Pulse Resp B/P Pulse Ox O2 Delivery O2 Flow Rate FiO2 02/16/17 11:44 98.4 79 19 140/95 96 02/14/17 02:10 Room Air 02/14/17 01:15 2.0 Intake and Output 02/15/17 02/15/17 02/16/17 15:00 23:00 07:00 Intake Total 500 ml 300 ml Balance 500 ml 300 ml Exam Constitutional: other (sitting in chair, no acute distress), No alert Head: atraumatic, normocephalic Eyes: PERRL Respiratory: clear to auscultation, diminished breath sounds Cardiovascular: regular rate and rhythm, No murmurs/extra sounds Gastrointestinal: bowel sounds, non-tender, soft Extremities: No edema Results Result Diagram: 02/16/17 1127 02/16/17 1127 Results 24 hrs Laboratory Tests Test 02/16/17 11:27 White Blood Count 8.3 # Red Blood Count 6.86 #H Hemoglobin 13.0 L Hematocrit 38.1 L Mean Corpuscular Volume 88.8 Mean Corpuscular Hemoglobin 30.3 Mean Corpuscular Hemoglobin Concent 34.1 Red Cell Distribution Width 14.5 Platelet Count 65 L Mean Platelet Volume 13.1 H Neutrophils % 82.3 H Lymphocytes % 6.1 L Monocytes % 7.7 Eosinophils % 2.9 Basophils % 0.8 Nucleated Red Blood Cells % 0.0 Neutrophils # 6.9 Lymphocytes # 0.5 L Monocytes # 0.6 Eosinophils # 0.2 Basophils # 0.1 Nucleated Red Blood Cells # 0.0 Sodium Level 137 Potassium Level 3.6 Chloride Level 101 Carbon Dioxide Level 28 Anion Gap 12 Blood Urea Nitrogen 10 Creatinine 0.69 Glucose Level 116 Calcium Level 9.4 Total Bilirubin 0.9 Direct Bilirubin 0.00 Indirect Bilirubin 0.9 Aspartate Amino Transf (AST/SGOT) 238 H Alanine Aminotransferase (ALT/SGPT) 90 H Alkaline Phosphatase 207 H Total Protein 8.4 H Albumin 4.7 Globulin 3.70 H Albumin/Globulin Ratio 1.27 Amylase Level 95 Lipase 306 H Medications Medications Current Medications Multivitamins/ Thiamine HCl/ Folic Acid/Sodium Chloride (Mvi Adult/ Vitamin B1/ Folic Acid/NS) 1,011.2 ml @ 125 mls/ hr DAILY@09 IVPB Last administered on 02/16 08:56; Admin Dose 125 MLS/HR; Start 02/14/17 at 09:00 Chlordiazepoxide (Librium) 25 mg TID PO Last administered on 02/16/17 13:04; Admin Dose 25 MG; Start 02/14/17 at 09:00; Stop 02/17/17 at 08:59 Lorazepam (Ativan) 1 mg Q6H PRN IV withdrawal / agitation; Start 02/13/17 at 23: 30 Pantoprazole (Protonix Iv) 40 mg DAILY@06 IV Last administered on 02/16/17 06: 41; Admin Dose 40 MG; Start 02/14/17 at 06:00 Ondansetron HCl (Zofran Inj) 4 mg Q6H PRN IV NAUSEA AND/OR VOMITING; Start 02/13 at 23:30 Acetaminophen (Tylenol Tab) 650 mg Q6H PRN PO PAIN AND OR ELEVATED TEMP; Start 02/13/17 at 23:30 TONG MOREIRA Feb 16, 2017 15:05
[2017-02-16 15:50] VITALS: BP 134/88; RESP 20
[2017-02-16 19:27] VITALS: BP 140/91; RESP 16
[2017-02-16 23:48] VITALS: BP 140/89; RESP 16
[2017-02-17 04:34] VITALS: BP 142/88; RESP 17
[2017-02-17] MEDS: PANTOPRAZOLE 40 MG INJ IV SCH (06:11)
[2017-02-17 07:46] LABS: ADD SCAN DIFF NO
[2017-02-17 07:58] LABS: ABNORMAL IP MESSAGE 1; BASOPHIL # 0.1 10^3/ul (0.0-0.1); BASOPHILS % 1.6 % (0.0-2.0); EOSINOPHILS # 0.4 10^3/ul (0.0-0.5); EOSINOPHILS % 5.1 % (0.0-7.0); HEMATOCRIT 37.8 % (42.0-52.0); HEMOGLOBIN 12.5 g/dl (14.0-18.0); LYMPHOCYTES # 0.9 10^3/ul (0.8-2.9); LYMPHOCYTES % 11.3 % (15.0-51.0); MEAN CORPUSCULAR HEMOGLOBIN 29.9 pg (29.0-33.0); MEAN CORPUSCULAR HGB CONC 33.1 g/dl (32.0-37.0); MEAN CORPUSCULAR VOLUME 90.4 fl (82.0-101.0); MEAN PLATELET VOLUME 12.9 fl (7.4-10.4); MONOCYTE # 0.8 10^3/ul (0.3-0.9); MONOCYTES % 9.5 % (0.0-11.0); NEUTROPHIL # 5.7 10^3/ul (1.6-7.5); NEUTROPHILS % 72.1 % (39.0-77.0); RED BLOOD COUNT 4.18 10^6/ul (4.70-6.10); WHITE BLOOD COUNT 7.9 10^3/ul (4.8-10.8)
[2017-02-17 07:59] LABS: PLATELET COUNT 77 10^3/UL (140-415)
[2017-02-17 08:00] VITALS: BP 110/74; RESP 20
[2017-02-17 08:10] LABS: MAGNESIUM 1.6 mg/dl (1.7-2.5); PHOSPHORUS 4.1 mg/dl (2.5-4.9)
[2017-02-17 08:13] LABS: CALCIUM 9.4 mg/dl (8.4-10.2); CREATININE 0.58 mg/dl (0.61-1.24); POTASSIUM 3.3 mmol/L (3.5-5.1)
[2017-02-17] MEDS: MULTIVITAMINS 10 ML, THIAMINE 100 MG, FOLIC ACID 1 MG in SOD CHLORIDE 0.9% 1,000 ML IVPB SCH (08:46)
[2017-02-17 11:55] VITALS: BP 145/93; RESP 18
[2017-02-17] MEDS ORDERED: MAGNESIUM SULFATE 1 GM/D5W 100 ML IVPB ONE (12:00)
--- NOTE | 2017-02-17 12:47 | PN ---
Date/Time of Note Date/Time of Note DATE: 02/17/17 TIME: 12:45 Assessment/Plan VTE Prophylaxis VTE Prophylaxis Intervention: SCD's Lines/Catheters IV [facility] Type (from [facility]): Peripheral IV Urinary Cath still in place: No Assessment/Plan Chief Complaint/Hosp Course Assessment/Plan: 47-year-old male with: 1. ETOH abuse and intoxication -slowly improving -continue IVF / banana bag / PRN ativan / librium -Monitor for withdrawal -Per GI recommendations, for EGD and colonoscopy in 24 hours 2. Reported hematemesis -follow-up GI Rec's including liver ultrasound, occult test 3. Hypokalemia -resolved, monitor 4. Chronic alcoholic liver disease with transaminitis and thrombocytopenia - trend liver enzymes and lipase levels (still slightly elevated) 5. Mild alcoholic pancreatitis -continue clear liquid diet and advance as tolerated, monitor lipase 6. 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 Patient tolerating p.o. diet. Exam/Review of Systems Vital Signs Vitals Vital Signs Date Time Temp Pulse Resp B/P Pulse Ox O2 Delivery O2 Flow Rate FiO2 02/17/17 11:55 98.4 73 18 145/93 96 02/14/17 02:10 Room Air 02/14/17 01:15 2.0 Intake and Output 02/16/17 02/16/17 02/17/17 15:00 23:00 07:00 Intake Total 400 ml 350 ml Balance 400 ml 350 ml Exam Constitutional: Lying in bed, no acute distress Head: atraumatic, normocephalic Eyes: PERRL Respiratory: clear to auscultation, diminished breath sounds Cardiovascular: regular rate and rhythm, No murmurs/extra sounds Gastrointestinal: bowel sounds, non-tender, soft Extremities: No edema Results Result Diagram: 02/17/17 0630 02/17/17 0630 Results 24 hrs Laboratory Tests Test 02/17/17 06:30 White Blood Count 7.9 Red Blood Count 4.18 #L Hemoglobin 12.5 L Hematocrit 37.8 L Mean Corpuscular Volume 90.4 Mean Corpuscular Hemoglobin 29.9 Mean Corpuscular Hemoglobin Concent 33.1 Red Cell Distribution Width 15.0 H Platelet Count 77 #L Mean Platelet Volume 12.9 H Neutrophils % 72.1 Lymphocytes % 11.3 L Monocytes % 9.5 Eosinophils % 5.1 Basophils % 1.6 Nucleated Red Blood Cells % 0.0 Neutrophils # 5.7 Lymphocytes # 0.9 Monocytes # 0.8 Eosinophils # 0.4 Basophils # 0.1 Nucleated Red Blood Cells # 0.0 Sodium Level 141 Potassium Level 3.3 L Chloride Level 100 Carbon Dioxide Level 27 Anion Gap 17 H Blood Urea Nitrogen 10 Creatinine 0.58 L Glucose Level 112 Calcium Level 9.4 Phosphorus Level 4.1 Magnesium Level 1.6 L Lipase 354 H Medications Medications Current Medications Multivitamins/ Thiamine HCl/ Folic Acid/Sodium Chloride (Mvi Adult/ Vitamin B1/ Folic Acid/NS) 1,011.2 ml @ 125 mls/ hr DAILY@09 IVPB Last administered on 02/17 08:46; Admin Dose 125 MLS/HR; Start 02/14/17 at 09:00 Lorazepam (Ativan) 1 mg Q6H PRN IV withdrawal / agitation; Start 02/13/17 at 23: 30 Pantoprazole (Protonix Iv) 40 mg DAILY@06 IV Last administered on 02/17/17 06: 11; Admin Dose 40 MG; Start 02/14/17 at 06:00 Ondansetron HCl (Zofran Inj) 4 mg Q6H PRN IV NAUSEA AND/OR VOMITING; Start 02/13 at 23:30 Acetaminophen 650 mg 650 mg Q6H PRN PO PAIN AND OR ELEVATED TEMP; Start at 23:30 Magnesium Sulfate/ Dextrose (Magnesium Sulfate 1 Gm/D5W) 100 ml @ 100 mls/hr ONCE ONCE IVPB Last administered on 02/17/17 12:37; Admin Dose 100 MLS/HR; Start 02/17/17 at 12:00; Stop 02/17/17 at 12:59 TONG MOREIRA Feb 17, 2017 12:47
--- NOTE | 2017-02-17 13:43 | PN ---
Date/Time of Note Date/Time of Note DATE: 02/17/17 TIME: 13:41 Assessment/Plan VTE Prophylaxis VTE Prophylaxis Intervention: ambulation Lines/Catheters IV [facility]ter Type (from [facility]): Peripheral IV Urinary Cath still in place: No Assessment/Plan Assessment/Plan Assessment * Hematemesis R/O Varices vs peptic ulcer disease vs others * Transaminitis Alcoholic liver disease chronic alcohol abuse * Alcoholic pancreatitis Plan * continue present management * progress diet * EGD on Saturday ,risks and benefit explained to patient and agreed with planned procedure * case discussed with Dr Snyder * trend liver enzymes * further orders will depend on clinical course Subjective 24 Hr Interval Summary Free Text/Dictation * Course reviewed with RN * Patient seen and examined * No untoward events overnight Exam/Review of Systems Vital Signs Vitals Vital Signs Date Time Temp Pulse Resp B/P Pulse Ox O2 Delivery O2 Flow Rate FiO2 02/17/17 11:55 98.4 73 18 145/93 96 02/14/17 02:10 Room Air 02/14/17 01:15 2.0 Intake and Output 02/16/17 02/16/17 02/17/17 15:00 23:00 07:00 Intake Total 400 ml 350 ml Balance 400 ml 350 ml Exam Constitutional: alert, oriented Psych: no complaints Head: normocephalic Eyes: nl conjunctiva Neck: non-tender, supple Respiratory: clear to auscultation, normal air movement Cardiovascular: nl pulses, regular rate and rhythm Gastrointestinal: nl liver, spleen, non-tender, soft Musculoskeletal: nl extremities to inspection, nl gait and stance Extremities: normal pulses Neurological: nl speech, nl strength Skin: nl turgor, No rash or lesions Lymph: nl lymph nodes Results Result Diagram: 02/17/17 0630 02/17/17 0630 Results 24 hrs Laboratory Tests Test 02/17/17 06:30 White Blood Count 7.9 Red Blood Count 4.18 #L Hemoglobin 12.5 L Hematocrit 37.8 L Mean Corpuscular Volume 90.4 Mean Corpuscular Hemoglobin 29.9 Mean Corpuscular Hemoglobin Concent 33.1 Red Cell Distribution Width 15.0 H Platelet Count 77 #L Mean Platelet Volume 12.9 H Neutrophils % 72.1 Lymphocytes % 11.3 L Monocytes % 9.5 Eosinophils % 5.1 Basophils % 1.6 Nucleated Red Blood Cells % 0.0 Neutrophils # 5.7 Lymphocytes # 0.9 Monocytes # 0.8 Eosinophils # 0.4 Basophils # 0.1 Nucleated Red Blood Cells # 0.0 Sodium Level 141 Potassium Level 3.3 L Chloride Level 100 Carbon Dioxide Level 27 Anion Gap 17 H Blood Urea Nitrogen 10 Creatinine 0.58 L Glucose Level 112 Calcium Level 9.4 Phosphorus Level 4.1 Magnesium Level 1.6 L Lipase 354 H Medications Medications Current Medications Multivitamins/ Thiamine HCl/ Folic Acid/Sodium Chloride (Mvi Adult/ Vitamin B1/ Folic Acid/NS) 1,011.2 ml @ 125 mls/ hr DAILY@09 IVPB Last administered on 02/17 08:46; Admin Dose 125 MLS/HR; Start 02/14/17 at 09:00 Lorazepam (Ativan) 1 mg Q6H PRN IV withdrawal / agitation; Start 02/13/17 at 23: 30 Pantoprazole (Protonix Iv) 40 mg DAILY@06 IV Last administered on 02/17/17 06: 11; Admin Dose 40 MG; Start 02/14/17 at 06:00 Ondansetron HCl (Zofran Inj) 4 mg Q6H PRN IV NAUSEA AND/OR VOMITING; Start 02/13 at 23:30 Acetaminophen (Tylenol Tab) 650 mg Q6H PRN PO PAIN AND OR ELEVATED TEMP; Start 02/13/17 at 23:30 ANGELES SALAZAR NP Feb 17, 2017 13:43
[2017-02-17 15:47] VITALS: BP 127/81; RESP 20
[2017-02-17 19:57] VITALS: BP 140/83; RESP 17
[2017-02-18] VITALS (12 sets, daily range): BP systolic 116–154; BP diastolic 58–90; PULSE 58–63; RESP 13–20
[2017-02-18] MEDS: PANTOPRAZOLE 40 MG INJ IV SCH (05:51)
[2017-02-18 07:02] LABS: CREATININE 0.63 mg/dl (0.61-1.24); POTASSIUM 3.1 mmol/L (3.5-5.1)
[2017-02-18] MEDS: MULTIVITAMINS 10 ML, THIAMINE 100 MG, FOLIC ACID 1 MG in SOD CHLORIDE 0.9% 1,000 ML IVPB SCH (08:33)
[2017-02-18] MEDS ORDERED: POTASSIUM CHLORIDE (SR) 20 MEQ TAB PO STA (14:11)
--- NOTE | 2017-02-18 14:11 | PN ---
Date/Time of Note Date/Time of Note DATE: 02/18/17 TIME: 14:03 Assessment/Plan VTE Prophylaxis VTE Prophylaxis Intervention: SCD's Lines/Catheters IV C[facility]ter Type (from [facility] Saline Lock Urinary Cath still in place: No Assessment/Plan Assessment/Plan 1. ETOH abuse, intoxication resolved, no withdrawal 2. Reported hematemesis, EGD today 3. Hypokalemia -KCL 4. Chronic alcoholic liver disease with transaminitis and thrombocytopenia 5. Mild alcoholic pancreatitis, improved Subjective 24 Hr Interval Summary Free Text/Dictation no abdominal pain. some itching on eyes Exam/Review of Systems Vital Signs Vitals Vital Signs Date Time Temp Pulse Resp B/P Pulse Ox O2 Delivery O2 Flow Rate FiO2 02/18/17 07:20 98.8 59 16 140/87 97 Intake and Output 02/17/17 02/17/17 02/18/17 15:00 23:00 07:00 Intake Total 2311.2 ml 100 ml Output Total 800 ml Balance 1511.2 ml 100 ml Exam Constitutional: alert, oriented Head: atraumatic, normocephalic Eyes: EOMI, PERRL, nl conjunctiva, nl lids, other (no discharge) ENMT: mucosa pink and moist, nl external ears & nose, nl lips & teeth, nl nasal mucosa & septum Neck: non-tender, supple Respiratory: clear to auscultation, normal air movement Cardiovascular: nl pulses, regular rate and rhythm, No S3, No S4, No bruits, No diastolic murmur, No edema, No gallop, No irregular rhythm, No jugular venous distention (JVD), No murmurs/extra sounds, No other, No rub, No systolic murmur Gastrointestinal: nl liver, spleen, non-tender, soft, No ascites, No bowel sounds, No distended, No firm, No hepatomegaly, No mass , No other, No rebound or guarding, No splenomegaly, No surgical scars, No tender Musculoskeletal: nl extremities to inspection Extremities: normal pulses, No calf tenderness, No clubbing, No cyanosis, No edema, No other, No palpable cord, No pitting pedal edema, No tenderness Neurological: [employer] II-XII intact, nl mental status, nl speech, nl strength Skin: nl turgor, rash or lesions Results Result Diagram: 02/17/17 0630 02/18/17 0454 Results 24 hrs Laboratory Tests Test 02/18/17 04:54 Sodium Level 139 Potassium Level 3.1 L Chloride Level 103 Carbon Dioxide Level 26 Anion Gap 13 Blood Urea Nitrogen 8 Creatinine 0.63 Glucose Level 100 Calcium Level 9.0 Lipase 436 H Medications Medications Current Medications Multivitamins/ Thiamine HCl/ Folic Acid/Sodium Chloride (Mvi Adult/ Vitamin B1/ Folic Acid/NS) 1,011.2 ml @ 125 mls/ hr DAILY@09 IVPB Last administered on 08:33; Admin Dose 125 MLS/HR; Start 02/14/17 at 09:00 Lorazepam (Ativan) 1 mg Q6H PRN IV withdrawal / agitation; Start 02/13/17 at 23: 30 Pantoprazole (Protonix Iv) 40 mg DAILY@06 IV Last administered on 02/18/17 05: 51; Admin Dose 40 MG; Start 02/14/17 at 06:00 Ondansetron HCl (Zofran Inj) 4 mg Q6H PRN IV NAUSEA AND/OR VOMITING; Start 02/13 at 23:30 Acetaminophen (Tylenol Tab) 650 mg Q6H PRN PO PAIN AND OR ELEVATED TEMP; Start 02/13/17 at 23:30 CANDIS ESPINO MD Feb 18, 2017 14:11
[2017-02-18] MEDS ORDERED: POTASSIUM CHLORIDE 250 ML IVPB ONE (16:00)
[2017-02-18] MEDS ORDERED: PROPOFOL 20 ML ONE (17:29)
[2017-02-18] MEDS ORDERED: LIDOCAINE 2% (SDV) 5 ML INJ ONE (17:29)
[2017-02-18] MEDS ORDERED: MIDAZOLAM 1 MG/ML 2 ML INJ ONE (17:29)
[2017-02-18] MEDS ORDERED: ONDANSETRON 4 MG INJ IV PRN (17:30)
[2017-02-18] MEDS ORDERED: MEPERIDINE 25 MG INJ IV PRN (17:30)
[2017-02-18] MEDS ORDERED: LORAZEPAM 2 MG INJ IV PRN (17:30)
[2017-02-18] MEDS ORDERED: DIPHENHYDRAMINE 50 MG INJ IV PRN (17:30)
[2017-02-18] MEDS ORDERED: OXYCODONE/ACETAMINOPHEN (5/325) TAB PO PRN (17:30)
--- NOTE | 2017-02-18 17:39 | OPR ---
Date/Time of Note Date/Time of Note DATE: 02/18/17 TIME: 17:37 Operative Report Preoperative Diagnosis * GI bleeding/hematemesis Postoperative Diagnosis Impression: * Mild distal esophagitis * Severe hemorrhagic gastritis likely alcohol induced * Rule out H. pylori infection. Biopsies obtained Plan: * PPI therapy * Review pathology * EtOH abstinence Operation/Procedure Performed * EGD with biopsies Anesthesia: MAC Estimated Blood Loss: none Specimens * Gastric body and antrum Grafts/Implants * Not applicable Complications: None KIN BELL MD Feb 18, 2017 17:39
[2017-02-19 03:01] VITALS: BP 146/88; RESP 19
[2017-02-19] MEDS: PANTOPRAZOLE 40 MG INJ IV SCH (05:49)
[2017-02-19 06:31] LABS: ADD SCAN DIFF NO
[2017-02-19 06:45] LABS: BASOPHIL # 0.1 10^3/ul (0.0-0.1); BASOPHILS % 1.9 % (0.0-2.0); EOSINOPHILS # 0.4 10^3/ul (0.0-0.5); EOSINOPHILS % 5.6 % (0.0-7.0); HEMATOCRIT 38.2 % (42.0-52.0); HEMOGLOBIN 12.6 g/dl (14.0-18.0); LYMPHOCYTES # 1.1 10^3/ul (0.8-2.9); LYMPHOCYTES % 14.7 % (15.0-51.0); MEAN CORPUSCULAR HEMOGLOBIN 30.4 pg (29.0-33.0); MEAN CORPUSCULAR VOLUME 92.3 fl (82.0-101.0); MEAN PLATELET VOLUME 12.3 fl (7.4-10.4); MONOCYTE # 1.3 10^3/ul (0.3-0.9); MONOCYTES % 16.9 % (0.0-11.0); NEUTROPHIL # 4.5 10^3/ul (1.6-7.5); NEUTROPHILS % 60.5 % (39.0-77.0); PLATELET COUNT 116 10^3/UL (140-415); RED BLOOD COUNT 4.14 10^6/ul (4.70-6.10); RED CELL DISTRIBUTION WIDTH 15.4 % (11.5-14.5); WHITE BLOOD COUNT 7.4 10^3/ul (4.8-10.8)
[2017-02-19 07:20] LABS: ALBUMIN 4.3 g/dl (3.3-4.9); ALBUMIN/GLOBULIN RATIO 1.16; BILIRUBIN,INDIRECT 0.5 mg/dl (0-1.1); BILIRUBIN,TOTAL 0.5 mg/dl (0.2-1.3); CALCIUM 9.7 mg/dl (8.4-10.2); CREATININE 0.56 mg/dl (0.61-1.24); POTASSIUM 3.6 mmol/L (3.5-5.1)
[2017-02-19 09:05] VITALS: BP 127/80; RESP 18
[2017-02-19] MEDS: MULTIVITAMINS 10 ML, THIAMINE 100 MG, FOLIC ACID 1 MG in SOD CHLORIDE 0.9% 1,000 ML IVPB SCH (09:09)
[2017-02-19 15:25] VITALS: BP 115/80; RESP 18
[2017-02-19] MEDS ORDERED: PANT40TA3 PO (16:39)
--- NOTE | 2017-02-19 16:45 | DS ---
Date/Time of Note Date/Time of Note DATE: 02/19/17 TIME: 16:40 Discharge Summary Admission/Discharge Info Admit Date/Time Feb 13, 2017 at 21:55 Discharge Date/Time Discharge Diagnosis 1. ETOH abuse, intoxication resolved 2. Upper GI bleeding from gastritis, stopped, protonix, stop ETCH 3. Hypokalemia, corrected 4. Chronic alcoholic liver disease with transaminitis and thrombocytopenia 5. Mild alcoholic pancreatitis, improved Patient Condition: Stable Hx of Present Illness 47-year-old male who was found on the sidewalk and brought in by EMS found to be acutely intoxicated and altered. No other history is obtainable. Per emergency room physician report, patient has been having hematemesis. No evidence of hematemesis on my evaluation, however patient is barely arousable at this time. Will admit him allow him to sleep off his intoxication and see what he does when he arouses. Hospital Course Patient was treated with IVF, banana bag and benzo. Symptoms improved without significant withdrawal symptoms. Patient is advised to quit driking ETOH. Patient reported vomiting blood, stable H/H. EGD done on 02/18/2017 revealed gastritis. He will be on protonix. Home Meds Active Scripts Pantoprazole* (Protonix*) 40 Mg Tablet., 40 MG PO BID for 30 Days, TAB Prov:CANDIS ESPINO MD 02/19/17 Follow-up Plan PCP in one week Dr. Snyder in 2 weeks Primary Care Provider Care Physician No Primary Pending Labs Laboratory Tests Test 02/19/17 04:56 White Blood Count 7.410^3/ul (4.8-10.8) Red Blood Count 4.1410^6/ul (4.70-6.10) Hemoglobin 12.6g/dl (14.0-18.0) Hematocrit 38.2% (42.0-52.0) Mean Corpuscular Volume 92.3fl (82.0-101.0) Mean Corpuscular Hemoglobin 30.4pg (29.0-33.0) Mean Corpuscular Hemoglobin Concent 33.0g/dl (32.0-37.0) Red Cell Distribution Width 15.4% (11.5-14.5) Platelet Count 10764^3/UL (140-415) Mean Platelet Volume 12.3fl (7.4-10.4) Neutrophils % 60.5% (39.0-77.0) Lymphocytes % 14.7% (15.0-51.0) Monocytes % 16.9% (0.0-11.0) Eosinophils % 5.6% (0.0-7.0) Basophils % 1.9% (0.0-2.0) Nucleated Red Blood Cells % 0.0/100WBC (0.0-0.0) Neutrophils # 4.510^3/ul (1.6-7.5) Lymphocytes # 1.110^3/ul (0.8-2.9) Monocytes # 1.310^3/ul (0.3-0.9) Eosinophils # 0.410^3/ul (0.0-0.5) Basophils # 0.110^3/ul (0.0-0.1) Nucleated Red Blood Cells # 0.010^3/ul (0.0-0.0) Sodium Level 133mmol/L (135-144) Potassium Level 3.6mmol/L (3.5-5.1) Chloride Level 101mmol/L (97-110) Carbon Dioxide Level 26mmol/L (21-31) Anion Gap 10 (8-16) Blood Urea Nitrogen 10mg/dl (7-20) Creatinine 0.56mg/dl (0.61-1.24) Glucose Level 89mg/dl (70-220) Calcium Level 9.7mg/dl (8.4-10.2) Total Bilirubin 0.5mg/dl (0.2-1.3) Direct Bilirubin 0.00mg/dl (0.00-0.20) Indirect Bilirubin 0.5mg/dl (0-1.1) Aspartate Amino Transf (AST/SGOT) 236IU/L (15-46) Alanine Aminotransferase (ALT/SGPT) 193IU/L (13-69) Alkaline Phosphatase 177IU/L (42-121) Total Protein 8.0g/dl (6.1-8.1) Albumin 4.3g/dl (3.3-4.9) Globulin 3.70g/dl (1.3-3.2) Albumin/Globulin Ratio 1.16 CANDIS ESPINO MD Feb 19, 2017 16:44
== END 2017-02-19 18:32 | disposition home or self-care (01) | DRG 377 ==
LOC: E/R 18:27 → EDBD 21:55 → MS4 21:55 → PP2 02-17 16:25
PROVIDERS: ADMIT Family Medicine; ATTEND Family Medicine
PROC: 0DB68ZX Excision of Stomach, Via Natural or Artificial Opening Endoscopic, Diagnostic (ICD-10-PCS; principal; 2017-02-13)
DX: K29.21 Alcoholic gastritis with bleeding (principal); G92 Toxic encephalopathy; K86.0 Alcohol-induced chronic pancreatitis; D69.6 Thrombocytopenia, unspecified; K92.0 Hematemesis; F10.129 Alcohol abuse with intoxication, unspecified; Y90.8 Blood alcohol level of 240 mg/100 ml or more; K20.9 Esophagitis, unspecified; E87.6 Hypokalemia
CPT/HCPCS: 36415; 71010; 76700; 80048; 80053; 80076; 80306; 82150; 82962; 83605; 83690; 83735; 84100; 85025; 85610; 85730; 86850; 86900; 86901; 88305; 88312; 93005; 96374; C9113; J1644; J2250; J3411; J3475; J3480; J7030; J7042